=== PATIENT | female | born 1985 | race Caucasian/White ===

== ENCOUNTER 2025-09-02 18:30 | Emergency (ER) | payer SELFPAY ==
[2025-09-02 18:31] VITALS: BP 144/93
[2025-09-02 18:55] LABS: Hematocrit 36.4 % (37.0-47.0); Hemoglobin 12.6 g/dL (12.0-16.0); Mean Corp Hgb Conc. 34.6 g/dL (33.0-37.0); Mean Corpuscular Volume 88.6 fL (81.0-99.0); Nucleated Red Blood Cells % 0 %; Platelet Count 251 10^3/uL (130-400); Red Cell Dist. Width 12.1 % (11.5-14.5)
[2025-09-02 19:15] LABS: HCG, Serum Qualitative Screen Negative
[2025-09-02 19:24] LABS: ALT (SGPT) 14 U/L (0-35); AST (SGOT) 17 U/L (14-36); Albumin 4.5 g/dl (3.5-5.0); Alkaline Phosphatase 45 U/L (38-126); Blood Urea Nitrogen 16 mg/dl (7-17); Calcium 8.9 mg/dl (8.4-10.2); Carbon Dioxide 23 mmol/L (22-30); Chloride 109 mmol/L (98-107); Glucose 102 mg/dl (70-99); Potassium 4.5 mmol/L (3.5-5.1); Sodium 139 mmol/L (135-145); Total Protein 6.9 g/dl (6.3-8.2); eGFR > 60.00
[2025-09-02 20:00] VITALS: BP 128/77
--- NOTE | 2025-09-02 22:13 | ED.GENMED ---
History of Present Illness
General
Chief Complaint: Abdominal Pain
Source: patient
Exam Limitations: none
Time Seen by Provider: 09/02/25 21:27
Nursing documentation reviewed up to this point in time: agreed with
History of Present Illness
History of Present Illness:
39-year-old female with no significant past medical history says for the past 2 weeks when she has had a bowel movement approximately every other day she has noted blood in her stools. She does have a history of constipation and she has been
increasing her fiber intake. She states she has been tired, fatigued also. This evening when she had a bowel movement with blood in it she took a picture and has it with her. There is brown stool with red mixed in and the bottom of the toilet
with red toilet water. She denies fever or chills. Denies shortness of breath or chest pain. Denies abdominal pain.
Past History
Past History
ED Past Medical History: None
ED Past Surgical History: Gynecological (Breast augmentation)
Social History
Tobacco: Non-smoker
Alcohol: Occasional
Personal:
Living: with family
Employment: Employed
Review of Systems
Review of Systems
Allergies reviewed?: Yes
All Other Systems: ROS reviewed and negative except as documented in HPI and ROS
Phy Exam
Physical Exam
Physical Exam:
GENERAL: No acute distress. A&Ox3.
CONSTITUTIONAL: Afebrile.
EYES: clear, conjunctivae normal
ENMT: moist mucus membranes, Pharynx nl
RESPIRATORY: Regular respirations, nonlabored, lungs clear.
CARDIOVASCULAR: Regular rate and rhythm, no murmurs, no rubs.
GI: Soft, nontender, normal BS
Rectal: No stool in rectal vault, gloved finger with mucus hematest negative. No external hemorrhoids. No palpable masses or significant tenderness with rectal exam.
MUSCULOSKELETAL: Moves with ease. Well perfused.
SKIN: Warm, dry, pink
PSYCH: Normal mood and affect. Well kept, interactive and appropriate
NEUROLOGIC: Awake, alert and oriented. No focal neurological deficits
Course
Orders/Labs/Results
Orders:
Orders
09/02/25 18:35
Test Result ONCE
09/02/25 18:43
Complete Blood Count/With Diff Urgent
Comprehensive Metabolic Panel Urgent
HCG, Serum Qualitative Screen Urgent
Comment: Notify provider if positive test present
Abnormal Lab Results
09/02/25
18:43
RBC 4.11 L 10^6/uL
(4.20-5.40)
Hct 36.4 L %
(37.0-47.0)
Chloride 109 H mmol/L
(98-107)
Glucose 102 H mg/dl
(70-99)
09/02/25 18:43
09/02/25 18:43
Vital Signs
Initial and Last Documented VS:
Initial Vital Signs
Temp Pulse Resp BP Pulse Ox
97.8 F 94 20 144/93 100
09/02/25 18:31 09/02/25 18:31 09/02/25 18:31 09/02/25 18:31 09/02/25 18:31
Last Documented Vital Signs
Temp Pulse Resp BP Pulse Ox
97.4 F 71 18 128/77 97
09/02/25 20:00 09/02/25 20:00 09/02/25 20:00 09/02/25 20:00 09/02/25 22:13
MDM/Problems Addressed
Differential Diagnosis Includes:
Internal/external hemorrhoids, fissure, ruptured diverticulum
MDM/Problems Addressed:
39-year-old female with no significant past medical history says for the past 2 weeks when she has had a bowel movement approximately every other day she has noted blood in her stools. She does have a history of constipation and she has been
increasing her fiber intake. She states she has been tired, fatigued also. This evening when she had a bowel movement with blood in it she took a picture and has it with her. There is brown stool with red mixed in and the bottom of the toilet
with red toilet water. She denies fever or chills. Denies shortness of breath or chest pain. Denies abdominal pain.
Afebrile, NAD
Rectal: No stool in rectal vault, gloved finger with mucus hematest negative. No external hemorrhoids. No palpable masses or significant tenderness with rectal exam.
Lab work is unremarkable. No indication of significant bleeding. Patient reassured and given copy of all results.
For now, observe, return if bleeding gets worse otherwise follow-up with colorectal if symptoms continue beyond the next week
Given a referral to colorectal to use as needed
*Pulse Oximetry
SaO2: 97
Oxygen Mode of Delivery: Room air
Patient hypoxic: no
*Critical Care Note
Total Time (30-74mins, 75-104mins- exclusive of procedures): Not Applicable
ED Attending Note
-
Portions of this chart may have been created with voice recognition software.� Occasional wrong word or��sound alike� substitutions may have occurred due to the inherent limitations of voice recognition software.
Discharge Plan
Departure
Patient Disposition: Home (Routine Discharge)
Date of Disposition: 09/02/25
Time of Disposition: 21:57
Patient with high blood pressure during this ER visit?: No
Condition: Good
Discharge Problem:
Hematochezia
Instructions: Constipation, Adult (DC), Bloody stools in adults - ED (DC)
Referrals:
Sanjeev Kerns MD [Active, Surgical] - As needed
Activity Restrictions/Additional Instructions:
As we discussed, your workup here shows not dangerous or significant bleeding.
Observe and if it continues over the next 2 days, make appointment with the colorectal doctor Luis F for evaluation
Return here immediately for worsening bleeding.
I sent your information to the [facility], you should receive a call in 2-3 days.
Interventions
Interventions:
*Risk Screen - Suicide Last Done: 09/02/25 18:31
*General Assessment Last Done: 09/02/25 18:31
*Neglect/Abuse Screening Last Done: 09/02/25 18:31
*ED- Fall Risk Assessment Last Done: 09/02/25 21:51
*ED COVID-19 Vaccine History Last Done: 09/02/25 21:51
*ED Influenza Vaccine History Last Done: 09/02/25 21:51
*Nursing Disposition Last Done: 09/02/25 22:09
HQ-Srnsym-Socdbqfokt Assessment Last Done: 09/02/25 21:50
Discharge Date and Time
Discharge Date/Time: 09/02/25 22:31
Print Language: NAURUAN
== END 2025-09-02 22:31 | disposition home or self-care (01) ==
LOC: EMR 18:30
PROVIDERS: Student in an Organized Health Care Education/Training Program; EMERGENCY PHYSICIAN Emergency Medicine
DX: K92.1 Melena (principal)
CPT/HCPCS: 99283; 80053; 84703; 85025